=== PATIENT | female | born 1965 | race Two or more races ===

== ENCOUNTER 2024-07-17 16:42 | Emergency (ER) | payer MEDICAID ==
[~2024-07-17] VITALS: Ht 162.6 cm; Wt 70.9 kg
[2024-07-17 18:40] VITALS: BP 132/78; PULSE 67; RESP 19; TEMP 98; O2SAT 97
== END 2024-07-17 21:15 | disposition home or self-care (01) ==
LOC: ER 16:42
DX: S09.8XXA Other specified injuries of head, initial encounter (principal); M53.3 Sacrococcygeal disorders, not elsewhere classified; I10 Essential (primary) hypertension; W18.2XXA Fall in (into) shower or empty bathtub, initial encounter; Y93.89 Activity, other specified; Y92.091 Bathroom in other non-institutional residence as the place of occurrence of the external cause; Y99.8 Other external cause status
CPT/HCPCS: 70450; 72220